=== PATIENT | female | born 1995 | race Caucasian/White ===

== ENCOUNTER 2017-12-06 23:22 | Emergency (ER) | END 2017-12-07 00:50 | disposition home or self-care (01) ==

== ENCOUNTER 2018-10-14 15:59 | Emergency (ER) | payer MEDICAID ==
[~2018-10-14] VITALS: Ht 154.9 cm; Wt 83.2 kg
[~2018-10-14 15:59] MED LIST: ACET325T33 PO; CEPH-443 PO; HYDR50TA15 PO
[2018-10-14 16:04] VITALS: Ht 154.9 cm; Wt 83.2 kg
--- NOTE | 2018-10-14 16:19 | EN ---
Date/Time of Note Date/Time of Note DATE: 10/14/18 TIME: 16:18 ER Progress Note [id number] female G4 para 3 referred by clinic 1 month status post chemical termination with possible retained products. No SIRS criteria. EDWIN NIXON MD Oct 14, 2018 16:19
--- NOTE | 2018-10-14 17:55 | ERD ---
ER Documentation Chief Complaint Chief Complaint VB X1 MONTH AFTER TAKING MEDS TO ABORT HPI 23-year-old femaleGravida 4 para 3 presenting to the emergency department complaining of vaginal bleeding for 1 day. She states she took a Plan B pill 1 month ago. Associated symptoms today include pelvic pain which is rated 7/10 in severity and intermittent. She has been using 2 pads per hour. She took no medication for relief of symptoms today. She denies any fevers, chills, abdominal pain, or other symptoms at this time. ROS All systems reviewed and are negative except as per history of present illness. Medications Home Meds Discontinued Scripts Acetaminophen* (Tylenol*) 325 Mg Tablet, 2 TAB PO Q6 PRN for PAIN AND OR ELEVATED TEMP, #20 TAB Prov:LUCIAN DE LA CRUZ PA-C 10/14/18 Hydroxyzine Hcl* (Hydroxyzine Hcl*) 50 Mg Tablet, 50 MG PO Q6H PRN for ANXIETY, #30 TAB Prov:PASILABAN,KLAR F 12/07/17 Cephalexin* (Keflex*) 500 Mg Capsule, 500 MG PO QID for 5 Days, CAP Prov:PASILABAN,KLAR F 12/07/17 Allergies Allergies: Coded Allergies: No Known Allergy (Unverified , 10/15/18) PMhx/Soc Medical and Surgical Hx: pt denies Medical Hx Hx Alcohol Use: No Hx Substance Use: No Hx Tobacco Use: No FmHx Family History: No diabetes Physical Exam Vitals Vital Signs Date Temp Pulse Resp B/P (MAP) Pulse Ox O2 O2 Flow FiO2 Time Delivery Rate 10/14/18 98.6 89 19 117/76 100 Room Air 18:50 (90) 10/14/18 98.9 100 17 121/72 100 16:04 (88) Physical Exam Const: No acute distress Head: Atraumatic Eyes: Normal Conjunctiva ENT: Normal External Ears, Nose and Mouth. Neck: Full range of motion. No meningismus. Resp: Clear to auscultation bilaterally Cardio: Regular rate and rhythm, no murmurs Abd: Soft, non tender, non distended. Normal bowel sounds. No rebound t enderness or guarding. No McBurney's point tenderness. There is mild tenderness palpation of the pelvic region bilaterally. Skin: No petechiae or rashes Back: No midline or flank tenderness Ext: No cyanosis, or edema Neur: Awake and alert Psych: Normal Mood and Affect Result Diagram: 10/14/18 1717 Results 24 hrs Laboratory Tests Test 10/14/18 17:17 White Blood Count 8.0 10^3/ul Red Blood Count 4.77 10^6/ul Hemoglobin 14.5 g/dl Hematocrit 42.1 % Mean Corpuscular Volume 88.3 fl Mean Corpuscular Hemoglobin 30.4 pg Mean Corpuscular Hemoglobin Concent 34.4 g/dl Red Cell Distribution Width 11.6 % Platelet Count 303 10^3/UL Mean Platelet Volume 10.4 fl Immature Granulocytes % 0.100 % Neutrophils % 62.2 % Lymphocytes % 30.7 % Monocytes % 5.4 % Eosinophils % 1.5 % Basophils % 0.1 % Nucleated Red Blood Cells % 0.0 /100WBC Immature Granulocytes # 0.010 10^3/ul Neutrophils # 4.9 10^3/ul Lymphocytes # 2.4 10^3/ul Monocytes # 0.4 10^3/ul Eosinophils # 0.1 10^3/ul Basophils # 0.0 10^3/ul Nucleated Red Blood Cells # 0.0 10^3/ul Urine Color YELLOW Urine Clarity SLIGHTLY CLOUDY Urine pH 7.0 Urine Specific [place] 1.021 Urine Ketones TRACE mg/dL Urine Nitrite NEGATIVE mg/dL Urine Bilirubin NEGATIVE mg/dL Urine Urobilinogen NEGATIVE mg/dL Urine Leukocyte Esterase NEGATIVE Nicholas/ul Urine Microscopic RBC > 182 /HPF Urine Microscopic WBC 6 /HPF Urine Squamous Epithelial Cells FEW /HPF Urine Mucus FEW /HPF Urine Hemoglobin 3+ mg/dL Urine Glucose NEGATIVE mg/dL Urine Total Protein 1+ mg/dl Beta HCG, Quantitative 546.1 mIU/ml Procedures/MDM 23-year-old female is presenting to the emergency department complaining of vaginal bleeding and pelvic pain which began yesterday. CBC: no e/o of systemic infection or severe anemia CMP: no e/o severe acidosis, alkalosis, renal failure, diabetic ketoacidosis, liver disease Ultrasound showed in progress. 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 No evidence to suggest ectopic , tubo- ovarian abscess, ovarian torsion, septic , acute surgical abdomen, or other emergencies. No evidence of life-threatening pathology at time of discharge. Pt/family in agreement with discharge plan/diagnosis. Pt/family advised to return immediately with any new or worsening symptoms. Follow-up with primary care cece gates within the next 1-2 days. Disclaimer: Inadvertent spelling and grammatical errors are likely due to EHR/dictation software use and do not reflect on the overall quality of patient care. Also, please note that the electronic time recorded on this note does not necessarily reflect the actual time of the patient encounter. Departure Diagnosis: Primary Impression: Spontaneous Condition: LUCIAN Mehta PA-C Oct 14, 2018 17:55
[2018-10-14 18:50] VITALS: BP 117/76; PULSE 89; RESP 19
== END 2018-10-14 18:51 | disposition home or self-care (01) ==
LOC: FTE 15:59
DX: O20.9 Hemorrhage in early pregnancy, unspecified (principal); O26.891 Other specified pregnancy related conditions, first trimester; R10.2 Pelvic and perineal pain; Z3A.01 Less than 8 weeks gestation of pregnancy
CPT/HCPCS: 36415; 76801; 76817; 81001; 84702; 85025; 86850; 86900; 86901; Z7502

== ENCOUNTER 2018-10-15 09:35 | Observation (INO) | payer MEDICAID ==
[~2018-10-15] VITALS: Ht 152.4 cm; Wt 84.0 kg
[2018-10-15] VITALS (38 sets, daily range): BP systolic 81–125; BP diastolic 48–67; PULSE 62–108; RESP 13–30; Ht 152.4 cm; Wt 84.0 kg
[2018-10-15] MEDS ORDERED: morphine 4 MG/ML VIAL IV STA ×2 (09:47→10:36)
[2018-10-15] MEDS ORDERED: KETOROLAC 30 MG INJ IV STA ×2 (10:13→10:14)
--- NOTE | 2018-10-15 11:46 | ERD ---
ER Documentation Chief Complaint Chief Complaint vaginal bleeding, pelvic pain,vomitting-7week (spontaneous HPI 23-year-old female presents the emergency department complaining of vaginal bleeding and pelvic pain. Patient was in her usual state of health until proximal a month ago which time she had an early that was treated with Plan B. According to the patient, she had some limited follow-up after that but apparently never actually completed the miscarriage that was being treated. Patient began having some small amount of vaginal bleeding and pelvic pain approximately 1 week ago and then presented to our emergency department yesterday where she was diagnosed with an incomplete miscarriage. She returns again this morning with ongoing severe pain in her pelvis and a small amount of vaginal bleeding. She reports no hemorrhage. She reports no fevers, chills, vomiting. ROS All systems reviewed and are negative except as per history of present illness. Medications Home Meds Discontinued Scripts Acetaminophen* (Tylenol*) 325 Mg Tablet, 2 TAB PO Q6 PRN for PAIN AND OR ELEVATED TEMP, #20 TAB Prov:LUCIAN DE LA CRUZ PA-C 10/14/18 Hydroxyzine Hcl* (Hydroxyzine Hcl*) 50 Mg Tablet, 50 MG PO Q6H PRN for ANXIETY, #30 TAB Prov:PASILABAN,KLAR F 12/07/17 Cephalexin* (Keflex*) 500 Mg Capsule, 500 MG PO QID for 5 Days, CAP Prov:PASILABAN,KLAR F 12/07/17 Allergies Allergies: Coded Allergies: No Known Allergy (Unverified , 10/15/18) PMhx/Soc Anesthesia Reaction: No Hx Neurological Disorder: No Hx Respiratory Disorders: No Hx Cardiac Disorders: No Hx Psychiatric Problems: No Hx Miscellaneous Medical Probl: Yes (miscarriage) Hx Alcohol Use: No Hx Substance Use: No Hx Tobacco Use: No Smoking Status: Never smoker FmHx Supportive family at bedside Physical Exam Vitals Vital Signs Date Temp Pulse Resp B/P (MAP) Pulse Ox O2 O2 Flow FiO2 Time Delivery Rate 10/15/18 98.2 72 22 109/71 100 Room Air 09:45 (84) 10/15/18 98.0 105 20 132/75 99 09:36 (94) Physical Exam GENERAL: Well-developed, well-nourished. She appears to be severely uncomfortable. HEENT: Pupils equal, round, and reactive to light. EOMI. There is no scleral icterus. NECK: C-spine is soft and supple, there is no meningismus. There is no cervical lymphadenopathy. LUNGS: Clear to auscultation bilaterally. There are no rales, wheezes or rhonchi. HEART: Regular rate and rhythm, no murmurs, clicks, rubs or gallops. ABDOMEN: Soft, non-tender, non-distended. There are bowel sounds in all four quadrants. No rebound or guarding. EXTREMITIES: There is no peripheral cyanosis or edema. No focal swelling or erythema. NEURO: The patient moves all four extremities with 5/5 strength. Cranial nerves II - XII are intact. Normal gait. Alert and oriented SKIN: There is no apparent rash or petechiae. HEME/LYMPHATIC: There is no evidence of excessive bruising or lymphedema. PSYCHIATRIC: The patient does not appear anxious or depressed. Result Diagram: 10/15/18 1004 Results 24 hrs Laboratory Tests Test 10/15/18 10:03 10/15/18 10:04 Beta HCG, Quantitative 373.3 mIU/ml White Blood Count 8.4 10^3/ul Red Blood Count 4.60 10^6/ul Hemoglobin 14.0 g/dl Hematocrit 39.9 % Mean Corpuscular Volume 86.7 fl Mean Corpuscular Hemoglobin 30.4 pg Mean Corpuscular Hemoglobin Concent 35.1 g/dl Red Cell Distribution Width 11.8 % Platelet Count 292 10^3/UL Mean Platelet Volume 10.6 fl Immature Granulocytes % 0.500 % Neutrophils % 65.2 % Lymphocytes % 27.9 % Monocytes % 5.3 % Eosinophils % 1.0 % Basophils % 0.1 % Nucleated Red Blood Cells % 0.0 /100WBC Immature Granulocytes # 0.040 10^3/ul Neutrophils # 5.5 10^3/ul Lymphocytes # 2.3 10^3/ul Monocytes # 0.4 10^3/ul Eosinophils # 0.1 10^3/ul Basophils # 0.0 10^3/ul Nucleated Red Blood Cells # 0.0 10^3/ul Current Medications Medications Dose Sig/Enrique Start Time Status Last (Trade) Ordered Route PRN Stop Time Admin Dose Reason Admin Morphine 4 mg ONCE STAT 10/15/18 DC 10/15/18 Sulfate IV 09:47 10:05 (morphine) 10/15/18 09:48 Ketorolac 30 mg ONCE STAT 10/15/18 DC 10/15/18 Tromethamine IV 10:13 10:18 (Toradol) 10/15/18 10:14 Ketorolac 30 mg ONCE STAT 10/15/18 DC Tromethamine IV 10:14 (Toradol) 10/15/18 10:18 Morphine 4 mg ONCE STAT 10/15/18 DC 10/15/18 Sulfate IV 10:36 10:42 (morphine) 10/15/18 10:37 Procedures/MDM Patient was taken to a room, seen and evaluated. Comfort measures were initiated. Diagnostic tests were ordered and reviewed. 3 LEAD RHYTHM STRIP: Normal sinus rhythm without ectopy RADIOLOGY: Reviewed with the radiologist including ultrasounds from today and yesterday CONSULTATION: The on-call laborist was notified. Dr. Nguyen saw the patient in the ED and recommended a suction D/C. REEVALUATION: After supportive care, patient's pain was well-controlled. She had no evidence of hemorrhage in the emergency department. Diagnostic tests were appreciated. MEDICAL DECISION MAKIN-year-old female presents the emergency department with ongoing symptomatic incomplete miscarriage. At this time, patient has had an extended incomplete miscarriage and will be admitted for D&C. She has no evidence of significant hemorrhage or septic miscarriage. Departure Diagnosis: Primary Impression: Incomplete miscarriage Condition: DORITA Howard Oct 15, 2018 11:46
--- NOTE | 2018-10-15 13:27 | HP ---
Date/Time of Note Date/Time of Note DATE: 10/15/18 TIME: 13:23 Assessment/Plan VTE Prophylaxis SCD contraindicated: other (patient is ambulating) Pharmacological prophylaxis: other (patient is ambulating) Lines/Catheters IV [facility] Type [facility] Saline Lock Assessment/Plan Assessment/Plan Incomplete AB at 8 weeks and 2 days of gestation Admit for suction D&C All benefits and risks were discussed with the patient including but not limited to infection, bleeding which may require blood transfusion, trauma to other organs including bowel or bladder, risk of uterine perforation which may require diagnostic laparoscopy All patient questions were answered Patient completely understood her plan of care and agrees to proceed Result Diagram: 10/15/18 1004 Results 24hrs Laboratory Tests Test 10/15/18 10:03 10/15/18 10:04 Beta HCG, Quantitative 373.3 White Blood Count 8.4 Red Blood Count 4.60 Hemoglobin 14.0 Hematocrit 39.9 Mean Corpuscular Volume 86.7 Mean Corpuscular Hemoglobin 30.4 Mean Corpuscular Hemoglobin Concent 35.1 Red Cell Distribution Width 11.8 Platelet Count 292 Mean Platelet Volume 10.6 H Immature Granulocytes % 0.500 H Neutrophils % 65.2 Lymphocytes % 27.9 Monocytes % 5.3 Eosinophils % 1.0 Basophils % 0.1 Nucleated Red Blood Cells % 0.0 Immature Granulocytes # 0.040 H Neutrophils # 5.5 Lymphocytes # 2.3 Monocytes # 0.4 Eosinophils # 0.1 Basophils # 0.0 Nucleated Red Blood Cells # 0.0 HPI/ROS Admit Date/Time Admit Date/Time Hx of Present Illness 23-year-old female presents the emergency department complaining of vaginal bleeding and pelvic pain. She is approximately 8 weeks post 2 days of gestation with an incomplete Patient reports of taking Plan B a month ago and never had a proper follow-up She presented to the emergency department yesterday and was diagnosed with incomplete AB She again presented today with a chief complaint of severe pelvic pain and vaginal bleeding ROS Constitutional: no complaints, improved Eyes: no complaints ENT: no complaints Respiratory: no complaints Cardiovascular: no complaints Gastrointestinal: no complaints Genitourinary: no complaints Musculoskeletal: no complaints Skin: no complaints Neurologic: no complaints Endocrine: no complaints Lymphatic: no complaints Psychological: no complaints, nl mood/affect Immunologic: no complaints Additional Comments Active vaginal bleeding PMH/Family/Social Past Medical History Medical History: no pertinent history Coded Allergies: No Known Allergy (Unverified , 10/15/18) Past Surgical History Past Surgical Hx: no surgical history Family History Significant Family History: no pertinent family hx Social History Smoking Status: Never smoker Exam/Review of Systems Vital Signs Vitals Vital Signs Date Temp Pulse Resp B/P (MAP) Pulse Ox O2 O2 Flow FiO2 Time Delivery Rate 10/15/18 98.2 65 18 114/79 100 Room Air 12:27 (91) Exam Constitutional: alert, oriented, well developed Psych: no complaints, nl mood/affect Head: normocephalic, atraumatic Eyes: nl conjunctiva, EOMI, nl lids, nl sclera, PERRL ENMT: nl external ears & nose, nl lips & teeth, nl nasal mucosa & septum Neck: supple, non-tender Respiratory: clear to auscultation, normal air movement Cardiovascular: regular rate and rhythm, nl pulses Gastrointestinal: soft, nl liver, spleen, non-tender Genitourinary - Female: other (Active vaginal bleeding) Musculoskeletal: nl extremities to inspection Extremities: normal pulses Neurological: SECURITY CLERK II-XII intact, nl mental status, nl speech, nl strength Skin: nl turgor; No rash or lesions Lymph: nl lymph nodes Additional Comments PROCEDURE: US Obstetrical 1st Trimester CLINICAL INDICATION: Vaginal bleeding, severe pelvic pain TECHNIQUE: Multiple real-time images were acquired of the patient's maternal abdomen utilizing a curved array transducer. COMPARISON: 10/14/2018 FINDINGS: The uterus is the uterus is prominent in size measuring 11.8 cm in sagittal diameter and 5.1 x 4.9 cm in cross diameter. There is an elongated sac like structure seen in the lower uterine segment with a mean sac diameter of 3.16 cm which would correspond to a gestational sac age of 8 weeks 2 days. No yolk sac or pole is identified. The right ovary measures 3.3 x 2.2 by 1.5 cm and appears normal.. The left ovary measures 3.0 x 8-0.0 x 1.9 cm and appears normal. No adnexal mass or free fluid is identified IMPRESSION: 1. When compared to the previous sonogram done 10/14/2018, the uterus remains prominent and an elongated sac like structure persists within the lower uterine segment/cervix with no yolk sac or pole identified. The structure is the size of the average gestational sac at 8 weeks 2 days and likely represents an incomplete . 2. Normal appearing ovaries. 3. No adnexal mass or free fluid is evident. Physician Andres Date Time Electronically viewed and signed by Susan Cervantes Physician on 10/15/2018 10:56 RH/ CC: DORITA JULIO [id number] EVAN HAWKINS MD Oct 15, 2018 13:27
[2018-10-15] MEDS ORDERED: METOCLOPRAMIDE 10 MG INJ ONE (13:47)
--- NOTE | 2018-10-15 13:51 | PREAC ---
Date/Time of Note Date/Time of Note DATE: 10/15/18 TIME: 13:50 Anesthesia Eval and Record Evaluation Time Pre-Procedure Interview DATE: 10/15/18 TIME: 13:50 Age 23 Sex female NPO: 8 hrs Preoperative diagnosis 7 weeks spontaneous Planned procedure suction d&c Past Medical History Past Medical History: Includes GI: Obesity Surgery & Anesthesia Issues No known issue Meds Anticoagulation: No Beta Nadia within 24 hr: No Reason Beta Nadia not given: Pt. not on B-Nadia Discontinued Scripts Acetaminophen* (Tylenol*) 325 Mg Tablet, 2 TAB PO Q6 PRN for PAIN AND OR ELEVATED TEMP, #20 TAB Prov:LUCIAN DE LA CRUZ PA-C 10/14/18 Hydroxyzine Hcl* (Hydroxyzine Hcl*) 50 Mg Tablet, 50 MG PO Q6H PRN for ANXIETY, #30 TAB Prov:PASILABAN,KLAR F 12/07/17 Cephalexin* (Keflex*) 500 Mg Capsule, 500 MG PO QID for 5 Days, CAP Prov:PASILABAN,KLAR F 12/07/17 Meds reviewed: Yes Allergies Coded Allergies: No Known Allergy (Unverified , 10/15/18) Allergies Reviewed: Yes Labs/Studies Labs Reviewed: Reviewed by anesthesiologist Result Diagram: 10/15/18 1004 Laboratory Tests 10/15/18 10:04 Blood Bank Test 10/15/18 10:03 Blood Type B POSITIVE test: Positive Pre-procedure Exam Last vitals Vital Signs Date Temp Pulse Resp B/P (MAP) Pulse Ox O2 O2 Flow FiO2 Time Delivery Rate 10/15/18 98.2 72 16 110/78 100 Room Air 13:34 (89) Airway: Adequate mouth opening, Adequate thyromental dist Mallampati: Mallampati II Teeth: Normal Lung: Normal Heart: Normal ASA Physical Status ASA physical status: 2 Emergency: E Planned Anesthetic General/MAC: LMA Pre-operative Attestations Prior to commencing anesthesia and surgery, the patient was re-evaluated, there was verification of: *The patient's identity *The results of appropriate recent lab work and preoperative vital signs *The above evaluation not changing prior to induction *Anesthetic plan, risk benefits, alternative and complications discussed with p atient/family; questions answered; patient/family understands, accepts and wishes to proceed. Outpatient Receptionist used DOUGLAS MARTINEZ Oct 15, 2018 13:51
[2018-10-15] MEDS ORDERED: CEFAZOLIN 1 GM INJ ONE (14:00)
[2018-10-15] MEDS ORDERED: EPHEDrine 25 MG/5 ML SYG ONE (14:00)
[2018-10-15] MEDS ORDERED: morphine 2 MG INJ IV PRN ×2 (14:00)
[2018-10-15] MEDS ORDERED: LIDOCAINE 2% (SDV) 5 ML INJ ONE (14:00)
[2018-10-15] MEDS ORDERED: ALBUTEROL 0.083% (NEB) 2.5 MG/3 ML AMP HHN PRN (14:00)
[2018-10-15] MEDS ORDERED: HYDROmorphONE 1 MG/5 ML IV SYRINGE IV PRN ×3 (14:00)
[2018-10-15] MEDS ORDERED: ONDANSETRON 4 MG INJ ONE (14:00)
[2018-10-15] MEDS ORDERED: DIPHENHYDRAMINE 50 MG INJ IV PRN (14:00)
[2018-10-15] MEDS ORDERED: FENTAnyl 50 MCG/ML VIAL ONE (14:00)
[2018-10-15] MEDS ORDERED: ONDANSETRON 4 MG INJ IV PRN ×2 (14:00→18:30)
[2018-10-15] MEDS ORDERED: LABETALOL HCL 20MG INJ IV PRN (14:00)
[2018-10-15] MEDS ORDERED: MEPERIDINE 25 MG INJ IV PRN (14:00)
[2018-10-15] MEDS ORDERED: OXYCODONE/ACETAMINOPHEN (5/325) TAB PO PRN ×4 (14:00→18:30)
[2018-10-15] MEDS ORDERED: FENTAnyl 50 MCG/ML VIAL IV PRN ×2 (14:00)
[2018-10-15] MEDS ORDERED: hydrALAzine 20 MG INJ IV PRN (14:00)
[2018-10-15] MEDS ORDERED: FAMOTIDINE 20 MG INJ ONE (14:00)
[2018-10-15] MEDS ORDERED: EPHEDrine 25 MG/5 ML SYG IV PRN (14:00)
[2018-10-15] MEDS ORDERED: OXYTOCIN 10 UNIT INJ ONE (14:02)
[2018-10-15] MEDS ORDERED: DEXAMETHASONE 4 MG/ML 5 ML INJ ONE (14:10)
[2018-10-15] MEDS ORDERED: ACETAMINOPHEN 1000MG/100ML IV 100 ML IVPB STA (14:19)
--- NOTE | 2018-10-15 14:40 | OPR ---
Date/Time of Note Date/Time of Note DATE: 10/15/18 TIME: 14:33 Operative Report Procedure Date: Oct 15, 2018 Preoperative Diagnosis Incomplete Postoperative Diagnosis Incomplete Operation/Procedure Performed Suction D&C Surgeon see signature line Hydraulic Riveter none Anesthesia Type: general Estimated Blood Loss: 10 - 50 ml's Specimen Products of conception Grafts/Implants none Complications none Pt Condition Post Procedure: stable Disposition: PACU Procedure Description Patient was taken to the operating room After adequate amount of anesthesia was given she was prepped and draped in a normal sterile fashion Stewart catheter was placed to drain urine to gravity A weighted speculum was placed in the vagina and anterior lip of the cervix was grasped with single-tooth tenaculum Uterus sounded to size 8 Using Hegar dilators uterus was gradually dilated to size 8 Suction tip size 8 was inserted in the uterine cavity without any difficulty Suctioning of the products of conception was proceeded After a few passage no further products of conception was obtained Using a sharp curette the endometrium was found to be gritty All instruments were removed from the vagina All counts were reported to be correct Urine output 100 cc EBL 25 cc Patient tolerated procedure well and taken back to recovery room in stable condition EVAN HAWKINS MD Oct 15, 2018 14:40
--- NOTE | 2018-10-15 14:43 | PAC ---
Date/Time of Note Date/Time of Note DATE: 10/15/18 TIME: 14:43 Post-Anesthesia Notes Post-Anesthesia Note Last documented vital signs Vital Signs Date Temp Pulse Resp B/P (MAP) Pulse Ox O2 O2 Flow FiO2 Time Delivery Rate 10/15/18 98.2 72 16 110/78 100 Room Air 13:34 (89) Activity: WNL Respiratory function: WNL Cardiovascular function: WNL Mental status: Baseline Pain reasonably controlled: Yes Hydration appropriate: Yes Nausea/Vomiting absent: Yes DOUGLAS MARTINEZ Oct 15, 2018 14:43
[2018-10-15] MEDS ORDERED: METHYLERGONOVINE 0.2 MG INJ IM ONE ×2 (16:30→18:00)
[2018-10-15] MEDS ORDERED: OXYTOCIN 10 UNIT INJ IV ONE (16:30)
[2018-10-15] MEDS ORDERED: OXYTOCIN 30 UNITS/LR 500 ML IV SCH (17:00)
[2018-10-15] MEDS ORDERED: MISOPROSTOL 200 MCG TAB PR STA (17:35)
[2018-10-15] MEDS ORDERED: IBUPROFEN 800 MG TAB PO PRN (18:30)
[2018-10-16] MEDS: LACTATED RINGER'S 1,000 ML IV SCH ×3 (02:30→10:30)
[2018-10-16 07:54] VITALS: BP 99/50; PULSE 67; RESP 18
[2018-10-16] MEDS ORDERED: IBUPROFEN 800 MG TAB PO PRN (16:00)
[2018-10-16 16:09] VITALS: BP 90/53; PULSE 83; RESP 18
--- NOTE | 2018-10-16 16:34 | QN ---
Documentation Comment Patient reports had headache this morning. She also reports had one episode of dizziness when she initially started moving and walking. Reports chest pain and deep breathing mildly. Reports vaginal bleeding significantly decreased. Denies any fever or chills. General appearance: Alert and oriented x4 does not appear to be in any acute distress Abdomen: Soft, fundus palpable and firm to center below the umbilicus and nontender Extremities: No calf tenderness, no click no edema no cord palpable Lungs: Clear to auscultation bilaterally CV: RRR VS - Last 72 Hours, by Label Date Temp Pulse Resp B/P (MAP) Pulse Ox O2 O2 Flow FiO2 Time Delivery Rate 10/16/18 99.1 83 18 90/53 (65) 100 Room Air 16:09 10/16/18 98.3 67 18 99/50 (66) 98 Room Air 07:54 10/15/18 98.0 80 18 125/61 99 Room Air 23:52 (82) 10/15/18 98.1 75 18 110/55 98 Room Air 22:37 (73) 10/15/18 68 22 103/54 98 Room Air 20:08 (70) 10/15/18 72 25 102/60 98 Room Air 19:54 (74) 10/15/18 74 23 101/57 98 Room Air 19:38 (72) 10/15/18 84 30 104/67 99 Room Air 19:08 (79) 10/15/18 76 20 104/56 97 Room Air 18:38 (72) 10/15/18 74 19 105/59 97 Room Air 18:33 (74) 10/15/18 78 20 102/61 96 Room Air 18:28 (75) 10/15/18 86 23 103/59 98 Room Air 18:23 (74) 10/15/18 108 22 111/60 98 Room Air 18:18 (77) 10/15/18 90 25 99/48 (65) 99 Room Air 18:13 10/15/18 90 20 102/63 99 Room Air 18:03 (76) 10/15/18 86 24 96/53 (67) 99 Room Air 17:38 10/15/18 102 24 81/48 (59) 100 Room Air 17:33 10/15/18 84 23 99/51 (67) 99 Room Air 17:28 10/15/18 80 20 91/49 (63) 99 Room Air 17:23 10/15/18 72 23 96/48 (64) 97 Room Air 16:53 10/15/18 72 19 98/50 (66) 98 Room Air 16:48 10/15/18 76 19 98/55 (69) 99 Room Air 16:43 10/15/18 68 16 97/57 (70) 99 Room Air 16:05 10/15/18 68 16 96/57 (70) 100 Room Air 16:00 10/15/18 66 14 100/60 99 Room Air 15:55 (73) 10/15/18 64 13 102/57 99 Room Air 15:50 (72) 10/15/18 68 14 106/57 98 Room Air 15:45 (73) 10/15/18 64 15 104/57 99 Room Air 15:40 (73) 10/15/18 62 14 104/56 98 Room Air 15:35 (72) 10/15/18 62 14 102/59 97 Room Air 15:30 (73) 10/15/18 86 22 108/64 100 Room Air 15:25 (79) 10/15/18 68 14 102/60 100 Room Air 15:20 (74) 10/15/18 68 16 102/63 100 Room Air 15:15 (76) 10/15/18 68 15 105/64 100 Room Air 15:10 (78) 10/15/18 92 19 109/60 100 Room Air 15:05 (76) 10/15/18 80 16 105/62 100 Room Air 15:00 (76) 10/15/18 76 15 105/61 100 Room Air 14:55 (76) 10/15/18 80 15 100/60 100 Mask 14:50 (73) 10/15/18 98.6 14:48 10/15/18 82 17 100/60 98 Mask 14:45 (73) 10/15/18 98.6 78 20 107/58 100 Mask 14:40 (74) 10/15/18 98.2 72 16 110/78 100 Room Air 13:34 (89) 10/15/18 98.2 65 18 114/79 100 Room Air 12:27 (91) 10/15/18 98.2 72 22 109/71 100 Room Air 09:45 (84) 10/15/18 98.0 105 20 132/75 99 09:36 (94) Assessment Hospital day #2 Status post suction D&C with post evacuation bleeding, likely from uterine atony resolved with uterotonics. Patient currently stable. Reports a scant bleeding since last night. tension headache resolved after Tylenol.No neurological symptoms Had some pleuritic chest pain with deep breathing. Resolved after received Motrin. EKG chest x-ray unremarkable Patient symptoms resolved. Could ambulate without any symptom. Denies any shortness of breath, chest pain, dizziness, lightheadedness. Hemoglobin stable. Vital signs stable for discharge. Advised patient to have a follow-up after discharge from the hospital next week with her primary OB office for follow-up Advised to take iron with stool softener. , KIP BETANCOURT MD Oct 16, 2018 16:34
[2018-10-16 17:50] VITALS: BP 113/66; PULSE 76; RESP 18
--- NOTE | 2018-10-16 18:55 | DS ---
Date/Time of Note Date/Time of Note DATE: 10/16/18 TIME: 18:53 Discharge Summary Admission/Discharge Info Admit Date/Time Oct 15, 2018 at 18:34 Discharge Date/Time October 16, 2018 Discharge Diagnosis Incomplete miscarriage, retained products of conception, Anemia due to uterine atony port D&C resolved Patient Condition: Good Consults N/A Procedures Suction D&C Observation after D&C in house due to hemorrhage post D&C in PACU resolved with uterotonic's. Patient was kept overnight for observation. Hx of Present Illness Patient is a 23-year-old female with recent episode of , presented with complaint of heavy vaginal bleeding due to incomplete AB at 8 weeks and 2 days of gestation Admitted for suction D&C. She underwent dilatation and curettage. Postop course was complicated by postop bleeding in PACU due to uterine atony that resolved with uterotonic's. Patient was kept for observation overnight. Had scant bleeding overnight. On postoperative day #1 patient was noted to be stable enough for discharge. She could be able to ambulate without any symptoms. Her bleeding was scant. Her vitals were stable. She reported some episodes of chest discomfort with deep breathing however her oxygen saturation was in normal range. Her EKG and chest x-ray was unremarkable. Her vitals were stable prior to discharge home. She was discharged home in stable condition with a plan to have a follow-up with her primary OB office within 3 to 4 days after discharge from the hospital. Hospital Course Remarkable only for hemorrhage post D&C that resolved the uterotonics. Symptoms due to atony. Mild anemia, blood loss post suction D&C, resolved. Home Meds Discontinued Scripts Acetaminophen* (Tylenol*) 325 Mg Tablet, 2 TAB PO Q6 PRN for PAIN AND OR ELEVATED TEMP, #20 TAB Prov:LUCIAN DE LA CRUZ PA-C 10/14/18 Hydroxyzine Hcl* (Hydroxyzine Hcl*) 50 Mg Tablet, 50 MG PO Q6H PRN for ANXIETY, #30 TAB Prov:DARA ORELLANA 12/07/17 Cephalexin* (Keflex*) 500 Mg Capsule, 500 MG PO QID for 5 Days, CAP Prov:DARA ORELLANA 12/07/17 Follow-up Plan Within 3 to 4 days after discharge from the hospital with primary OB office or sooner as needed Primary Care Provider Care Physician No Primary Time spent on discharge: > 30 minutes Pending Labs Laboratory Tests Test 10/15/18 21:10 10/16/18 05:02 White Blood Count 7.5 10^3/ul (4.8-10.8) 7.9 10^3/ul (4.8-10.8) Red Blood Count 3.92 10^6/ul (4.20-5.40) 3.42 10^6/ul (4.20-5.40) Hemoglobin 12.0 g/dl (12.0-16.0) 10.7 g/dl (12.0-16.0) Hematocrit 34.7 % (37.0-47.0) 30.5 % (37.0-47.0) Mean Corpuscular Volume 88.5 fl (82.0-101.0) 89.2 fl (82.0-101.0) Mean Corpuscular 30.6 pg (29.0-33.0) 31.3 pg (29.0-33.0) Hemoglobin Mean Corpuscular 34.6 g/dl (32.0-37.0) 35.1 g/dl (32.0-37.0) Hemoglobin Concent Red Cell Distribution 11.4 % (11.5-14.5) 11.4 % (11.5-14.5) Width Platelet Count 276 10^3/UL (140-415) 280 10^3/UL (140-415) Mean Platelet Volume 10.2 fl (7.4-10.4) 10.9 fl (7.4-10.4) Immature Granulocytes % 0.300 % (0.001-0.429) 0.500 % (0.001-0.429) Neutrophils % 90.4 % (39.0-77.0) 84.7 % (39.0-77.0) Lymphocytes % 8.4 % (15.0-51.0) 11.7 % (15.0-51.0) Monocytes % 0.9 % (0.0-11.0) 3.0 % (0.0-11.0) Eosinophils % 0.0 % (0.0-7.0) 0.0 % (0.0-7.0) Basophils % 0.0 % (0.0-2.0) 0.1 % (0.0-2.0) Nucleated Red Blood Cells 0.0 /100WBC (0.0-0.0) 0.0 /100WBC (0.0-0.0) % Immature Granulocytes # 0.020 10^3/ul (0.0-0.031) 0.040 10^3/ul (0.0-0.031) Neutrophils # 6.8 10^3/ul (1.6-7.5) 6.7 10^3/ul (1.6-7.5) Lymphocytes # 0.6 10^3/ul (0.8-2.9) 0.9 10^3/ul (0.8-2.9) Monocytes # 0.1 10^3/ul (0.3-0.9) 0.2 10^3/ul (0.3-0.9) Eosinophils # 0.0 10^3/ul (0.0-0.5) 0.0 10^3/ul (0.0-0.5) Basophils # 0.0 10^3/ul (0.0-0.1) 0.0 10^3/ul (0.0-0.1) Nucleated Red Blood Cells 0.0 10^3/ul (0.0-0.0) 0.0 10^3/ul (0.0-0.0) # Beta HCG, Quantitative 117.6 mIU/ml KIP BETANCOURT MD Oct 16, 2018 18:55
--- NOTE | 2018-10-16 18:59 | PD.PPDC ---
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 Provider Information Physician Information Kip Betancourt Diagnosis [id number] Final Diagnosis: [id number] Incomplete miscarriage Condition [id number] Patient Condition: [id number] Good Diet [id number] Diet: Cvikr5q Resume Regular Diet Special Diet: High-fiber diet and iron rich diet Activity/Restrictions [id number] Activity: Ghuxw1h Normal Activity Qitvf1Vq Restrictions: Uryyb0v Nothing in the Vagina No [place] No Tampons, douche [id number] Return to Work or School: [id number] Oct 20, 2018 Follow-up Follow-up with Physician: 3, Day/Days Provider Information: Follow Up with primary OB office in 3 to 4 days or sooner as needed Return to clinic for [id number] 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
[2018-10-16 20:00] VITALS: BP 100/56; PULSE 80; RESP 18
== END 2018-10-16 20:00 | disposition home or self-care (01) ==
LOC: E/R 09:35 → SUR 13:40 → SDS 13:40 → MS1 18:34
PROVIDERS: ADMIT Obstetrics & Gynecology Gynecology; ATTEND Obstetrics & Gynecology Gynecology
DX: O03.4 Incomplete spontaneous abortion without complication (principal); D64.9 Anemia, unspecified
CPT/HCPCS: 36415; 59812; 71045; 76801; 84702; 85025; 86900; 86901; 88305; 93005; 96365; 96372; 96375; 96376; J0131; J0690; J1100; J1885; J2175; J2210; J2270; J2405; J2590; J2765; J3010; J7120; Z7500; Z7502; Z7512; Z7610; 99217; G0378

== ENCOUNTER 2018-10-20 12:10 | Emergency (ER) | payer MEDICAID ==
[~2018-10-20] VITALS: Wt 81.4 kg
[2018-10-20 12:30] VITALS: BP 127/76; PULSE 90; RESP 18
== END 2018-10-20 15:18 | disposition left against medical advice (07) ==
LOC: FTE 12:10
DX: R42 Dizziness and giddiness (principal)
CPT/HCPCS: 99282